=== PATIENT | male | born 1965 | race Caucasian/White ===

== ENCOUNTER → 2024-05-07 06:30 | Day surgery (SDC) | payer OTHER, SELFPAY ==
[2024-05-07 08:49] LABS: Glucose - Point of Care 137 mg/dl (70-99)
== END ==
LOC: GI 06:30
PROVIDERS: ATTENDING PHYSICIAN Internal Medicine
DX: K44.9 Diaphragmatic hernia without obstruction or gangrene (principal); F10.21 Alcohol dependence, in remission; Z87.19 Personal history of other diseases of the digestive system
CPT/HCPCS: 43235; 82962

== ENCOUNTER → 2025-05-07 09:33 | Outpatient (REF) | payer OTHER, SELFPAY | LOC: MRI 3T 09:33 | DX: H90.A21 Sensorineural hearing loss, unilateral, right ear, with restricted hearing on the contralateral side (principal) | CPT/HCPCS: 70553; A9575 ==

== ENCOUNTER → 2025-08-21 07:56 | Outpatient (REF) | payer OTHER, SELFPAY | LOC: HWRAD 07:56 | PROVIDERS: ATTENDING PHYSICIAN Internal Medicine Cardiovascular Disease; FAMILY PHYSICIAN Student in an Organized Health Care Education/Training Program | DX: R93.1 Abnormal findings on diagnostic imaging of heart and coronary circulation (principal) | CPT/HCPCS: 71250 ==